=== PATIENT | male | born 1955 | race Caucasian/White ===

== ENCOUNTER → 2021-03-31 | Outpatient (CLI) | payer OTHER ==
[~2021-03-31] MED LIST: Cyclobenzaprine5 MG PO; HYDACE5 PO; LORA1 PO; RXHYDACE PO
[2021-03-31 09:31] LABS: BASOPHILS PERCENT AUTO 1 % (0-2); EOSINOPHILS ABSOLUTE AUTO 0.17 K/mm3 (0.00-0.68); EOSINOPHILS PERCENT AUTO 2 % (0-6); Hematocrit 47.4 % (37.0-53.0); Hemoglobin 16.2 g/dL (13.5-17.5); IMMATURE GRAN ABSOLUTE AUTO 0.07 K/mm3 (0.00-0.10); IMMATURE GRAN PERCENT AUTO 1 % (0-1); LYMPHOCYTES ABSOLUTE AUTO 1.67 K/mm3 (0.84-5.20); LYMPHOCYTES PERCENT AUTO 18 % (21-46); MONOCYTES ABSOLUTE AUTO 0.82 K/mm3 (0.16-1.47); MONOCYTES PERCENT AUTO 9 % (4-13); Mean Corpuscular HGB 33.7 pg (26.0-34.0); Mean Corpuscular HGB Conc 34.2 g/dL (31.5-36.5); Mean Corpuscular Volume 99 fL (80-100); Mean Platelet Volume 10.4 fL (9.1-12.4); NEUTROPHILS ABSOLUTE AUTO 6.39 K/mm3 (1.96-9.15); NEUTROPHILS PERCENT AUTO 69 % (41-73); Platelet Count 293 K/mm3 (150-400); RDW Coefficient Variation 12.4 % (11.7-14.2); RDW Standard Deviation 45.2 fL (35.1-46.3); Red Blood Cell Count 4.81 M/mm3 (4.30-5.90); White Blood Cell Count 9.22 K/mm3 (4.00-11.30)
[2021-03-31 09:49] LABS: Anion Gap 12 mmol/L (6-16); Blood Urea Nitrogen 13 mg/dL (8-24); Bun/Creatinine Ratio 16.9 (12.0-20.0); CO2, Blood 24 mmol/L (21-32); Chloride, Blood 106 mmol/L (98-108); Creatinine, Blood 0.77 mg/dL (0.60-1.20); Glomerular Filtration Rate >60 (60-); Glucose, Blood 99 mg/dL (70-99); Potassium, Blood 4.6 mmol/L (3.5-5.5); Sodium, Blood 142 mmol/L (136-145)
== END ==
LOC: LAB SHORT 09:26
PROVIDERS: Physician Assistant Medical
DX: R10.9 Unspecified abdominal pain (principal)
CPT/HCPCS: 80048; 85025

== ENCOUNTER 2021-11-13 07:45 | Emergency (ER) | payer OTHER ==
[~2021-11-13] VITALS: Ht 175.3 cm; Wt 83.9 kg
[~2021-11-13 07:45] MED LIST changes: +KETO10 PO
[2021-11-13 09:23] LABS: BASOPHILS ABSOLUTE AUTO 0.06 K/mm3 (0.00-0.23); BASOPHILS PERCENT AUTO 1 % (0-2); EOSINOPHILS ABSOLUTE AUTO 0.19 K/mm3 (0.00-0.68); EOSINOPHILS PERCENT AUTO 3 % (0-6); Hematocrit 45.3 % (37.0-53.0); Hemoglobin 15.6 g/dL (13.5-17.5); IMMATURE GRAN ABSOLUTE AUTO 0.03 K/mm3 (0.00-0.10); IMMATURE GRAN PERCENT AUTO 0 % (0-1); LYMPHOCYTES ABSOLUTE AUTO 1.71 K/mm3 (0.84-5.20); LYMPHOCYTES PERCENT AUTO 24 % (21-46); MONOCYTES ABSOLUTE AUTO 0.69 K/mm3 (0.16-1.47); MONOCYTES PERCENT AUTO 10 % (4-13); Mean Corpuscular HGB 34.2 pg (26.0-34.0); Mean Corpuscular HGB Conc 34.4 g/dL (31.5-36.5); Mean Corpuscular Volume 99 fL (80-100); Mean Platelet Volume 10.7 fL (9.1-12.4); NEUTROPHILS ABSOLUTE AUTO 4.32 K/mm3 (1.96-9.15); NEUTROPHILS PERCENT AUTO 62 % (41-73); Platelet Count 233 K/mm3 (150-400); RDW Coefficient Variation 12.3 % (11.7-14.2); RDW Standard Deviation 45.7 fL (35.1-46.3); Red Blood Cell Count 4.56 M/mm3 (4.30-5.90)
[2021-11-13 09:41] LABS: Albumin, Blood 3.5 g/dL (3.4-5.0); Albumin/Globulin Ratio 1.1 (0.8-1.8); Bilirubin, Total 0.5 mg/dL (0.1-1.0); Bun/Creatinine Ratio 23.7 (12.0-20.0); Creatinine, Blood 0.8 mg/dL (0.60-1.20); Globulin, Blood 3.2 g/dL (2.2-4.0); Potassium, Blood 4.2 mmol/L (3.5-5.5); Total Protein, Blood 6.7 g/dL (6.4-8.2)
== END 2021-11-13 11:29 | disposition home or self-care (01) ==
LOC: ER 07:45
PROVIDERS: Physician Assistant
DX: K42.9 Umbilical hernia without obstruction or gangrene (principal); Z87.891 Personal history of nicotine dependence; Z88.5 Allergy status to narcotic agent; Z79.899 Other long term (current) drug therapy
CPT/HCPCS: 76857; 80053; 85025; 96374; 99283-25; J3010

== ENCOUNTER 2023-04-27 19:14 | Inpatient (IN) | payer OTHER ==
[~2023-04-27] VITALS: Ht 177.8 cm; Wt 92.5 kg
[2023-04-27 20:59] LABS: BASOPHILS ABSOLUTE AUTO 0.06 K/mm3 (0.00-0.23); BASOPHILS PERCENT AUTO 0 % (0-2); EOSINOPHILS ABSOLUTE AUTO 0.02 K/mm3 (0.00-0.68); EOSINOPHILS PERCENT AUTO 0 % (0-6); Hematocrit 45.5 % (37.0-53.0); Hemoglobin 15.6 g/dL (13.5-17.5); IMMATURE GRAN ABSOLUTE AUTO 0.13 K/mm3 (0.00-0.10); IMMATURE GRAN PERCENT AUTO 1 % (0-1); LYMPHOCYTES PERCENT AUTO 5 % (21-46); MONOCYTES PERCENT AUTO 8 % (4-13); Mean Corpuscular HGB 33.8 pg (26.0-34.0); Mean Corpuscular HGB Conc 34.3 g/dL (31.5-36.5); Mean Corpuscular Volume 99 fL (80-100); Mean Platelet Volume 10.1 fL (9.1-12.4); NEUTROPHILS ABSOLUTE AUTO 19.28 K/mm3 (1.96-9.15); NEUTROPHILS PERCENT AUTO 86 % (41-73); Platelet Count 300 K/mm3 (150-400); RDW Coefficient Variation 12.1 % (11.7-14.2); RDW Standard Deviation 44.2 fL (35.1-46.3); Red Blood Cell Count 4.61 M/mm3 (4.30-5.90); White Blood Cell Count 22.49 K/mm3 (4.00-11.30)
[2023-04-27 21:23] LABS: Albumin, Blood 3.7 g/dL (3.4-5.0); Albumin/Globulin Ratio 0.9 (0.8-1.8); Bilirubin, Total 1.1 mg/dL (0.1-1.0); Bun/Creatinine Ratio 18.1 (12.0-20.0); Calcium, Blood 8.9 mg/dL (8.5-10.1); Creatinine, Blood 0.72 mg/dL (0.60-1.20); Globulin, Blood 3.9 g/dL (2.2-4.0); Potassium, Blood 3.9 mmol/L (3.5-5.5); Total Protein, Blood 7.6 g/dL (6.4-8.2)
[2023-04-28 00:01] LABS: Source, Urine Clean Catch
[2023-04-28 00:30] LABS: Bilirubin, Urine Neg (Neg); Blood, Urine 1+ (Neg); Glucose Qualitative, Urine Neg (Neg); Ketones, Urine Neg (Neg); Leukocyte Esterase, Urine Neg (Neg); Nitrite, Urine Neg (Neg); Protein, Urine 1+ (Neg); Urobilinogen, Urine NORM (Normal)
[2023-04-28 00:38] LABS: Appearance, Urine Clear (Clear); Color, Urine Pale Yellow (P-Yellow)
[2023-04-28 00:39] LABS: Bacteria Rare /hpf; Red Blood Cells, Urine 0-2 /hpf (0-2); Squamous Epithelial Cells Not Seen /hpf (Few); White Blood Cells, Urine 0-2 /hpf (0-5)
[2023-04-28 04:25] VITALS: BP 173/94
--- NOTE | 2023-04-28 04:42 | NUR ---
RECEIVED INTO CARE AT 0423 BY WHEELCHAIR, ABLE TO AMBULATE INDEP FROM WHEELCHAIR TO BED. TELE PACK ON IN SR. SEE ADMISSION ASSESSMENT FOR DETAILS.
--- NOTE | 2023-04-28 06:39 | NUR ---
REPORTED 1/10 PAIN, HAD FENTANYL PRIOR TO COMING TO PCU WHICH WAS EFFECTIVE. DR. ALLEN BY TO SPEAK WITH PATIENT REGARDING COURSE OF TREATMENT/HOSPITAL STAY. INDEP IN ROOM. ON TELE IN SR [id number]. NO VOICED CONCERNS BY PATIENT.
[2023-04-28 09:18] VITALS: BP 143/86
[2023-04-28 09:34] LABS: BASOPHILS ABSOLUTE AUTO 0.06 K/mm3 (0.00-0.23); BASOPHILS PERCENT AUTO 0 % (0-2); EOSINOPHILS ABSOLUTE AUTO 0.07 K/mm3 (0.00-0.68); EOSINOPHILS PERCENT AUTO 1 % (0-6); Hematocrit 41.2 % (37.0-53.0); IMMATURE GRAN ABSOLUTE AUTO 0.06 K/mm3 (0.00-0.10); IMMATURE GRAN PERCENT AUTO 0 % (0-1); LYMPHOCYTES ABSOLUTE AUTO 1.22 K/mm3 (0.84-5.20); LYMPHOCYTES PERCENT AUTO 8 % (21-46); MONOCYTES ABSOLUTE AUTO 1.28 K/mm3 (0.16-1.47); MONOCYTES PERCENT AUTO 9 % (4-13); Mean Corpuscular HGB 33.7 pg (26.0-34.0); Mean Corpuscular Volume 99 fL (80-100); NEUTROPHILS ABSOLUTE AUTO 12.17 K/mm3 (1.96-9.15); NEUTROPHILS PERCENT AUTO 82 % (41-73); Platelet Count 217 K/mm3 (150-400); RDW Standard Deviation 43.9 fL (35.1-46.3); Red Blood Cell Count 4.16 M/mm3 (4.30-5.90); White Blood Cell Count 14.86 K/mm3 (4.00-11.30)
[2023-04-28 09:56] LABS: Albumin/Globulin Ratio 0.8 (0.8-1.8); Bilirubin, Total 0.9 mg/dL (0.1-1.0); Bun/Creatinine Ratio 19.4 (12.0-20.0); Calcium, Blood 8.2 mg/dL (8.5-10.1); Creatinine, Blood 0.72 mg/dL (0.60-1.20); Globulin, Blood 3.6 g/dL (2.2-4.0); Potassium, Blood 3.7 mmol/L (3.5-5.5); Total Protein, Blood 6.6 g/dL (6.4-8.2)
[2023-04-28 11:49] VITALS: BP 150/104
[2023-04-28 16:19] VITALS: BP 143/83
--- NOTE | 2023-04-28 16:38 | NUR ---
NPO STATUS AND SLEEP AIDE: PATIENT REPORTED DIFFICULTY SLEEPING AT HOME. PATIENT REQUESTING SLEEP AIDE WHILE IN THE HOSPITAL. DISCUSED WITH DR. BRYAN AND VERIFIED THAT PO MEDICATIONS OKAY WITH NPO STATUS. NEW MEDICAITON ORDERS RECEIVED AND ENTERED.
--- NOTE | 2023-04-28 18:16 | NUR ---
SHIFT SUMMARY: GI: PATIENT CONTINUED TO REPORT TENDERNESS IN LLQ AND CRAMPING IN HIS UPPER ABDOMEN TODAY. PATIENT DENIED NAUSEA THROUGHOUT THE SHIFT. BOWEL SOUNDS PRESENT. PATIENT ABLE TO TOLERATE SHORT WALKS TO THE BATHROOM AND DOWN THE [place]. NEURO: PATIENT ALERT AND ORIENTED X4 THROUGHOUT THE SHIFT. DENIED NUMBNESS/TINGLING. PATIENT WEARS GLASSES AT BASELINE. RESPIRATORY: PATIENT STABLE ON ROOM AIR. SPO2 >94%. DENIED SHORTNESS OF BREATH OR DIFFICULTY BREATHING. PATIENT REPORTS A "MILD ALLERGY" THAT HAS BEEN PRESENT FOR ABOUT A WEEK. PATIENT REPORTS SENSITIVITIES THROUGHOUT HIS LIFE. CARDIAC: PATIENT HR IN THE 70S-80S. PATIENT IN SINUS RHYTHM THROUGHOUT SHIFT WITH OCCASIONAL PVCS. PATIENT DENIES CHEST PAIN OR DISCOMFORT. BLOOD PRESSURES STABLE. MAPS >65. : PATIENT VOIDING WITHOUT DIFFICULTY. DENIES BURNING OR DISCOMFORT WITH VOIDING. PSYCHSOCIAL: PATIENT HAS A SIGNIFICANT OTHER THAT IS SUPPORTIVE OF THE PATIENT. PATIENT IS CALM AND COOPERATIVE WITH HIS CARE. PATIENT RECEPTIVE TO EDUCATION AND CHANGES HE CAN MAKE TO AVOID FUTURE DIVERTICULITIS.
[2023-04-28 20:48] VITALS: BP 167/104
[2023-04-29 03:26] VITALS: BP 139/101
[2023-04-29 04:20] LABS: BASOPHILS ABSOLUTE AUTO 0.06 K/mm3 (0.00-0.23); BASOPHILS PERCENT AUTO 1 % (0-2); EOSINOPHILS ABSOLUTE AUTO 0.14 K/mm3 (0.00-0.68); EOSINOPHILS PERCENT AUTO 1 % (0-6); Hematocrit 41.4 % (37.0-53.0); IMMATURE GRAN ABSOLUTE AUTO 0.05 K/mm3 (0.00-0.10); IMMATURE GRAN PERCENT AUTO 1 % (0-1); LYMPHOCYTES ABSOLUTE AUTO 1.23 K/mm3 (0.84-5.20); LYMPHOCYTES PERCENT AUTO 12 % (21-46); MONOCYTES PERCENT AUTO 10 % (4-13); Mean Corpuscular HGB Conc 33.8 g/dL (31.5-36.5); Mean Corpuscular Volume 101 fL (80-100); Mean Platelet Volume 11.6 fL (9.1-12.4); NEUTROPHILS ABSOLUTE AUTO 7.56 K/mm3 (1.96-9.15); NEUTROPHILS PERCENT AUTO 75 % (41-73); Platelet Count 209 K/mm3 (150-400); RDW Standard Deviation 45.1 fL (35.1-46.3); Red Blood Cell Count 4.12 M/mm3 (4.30-5.90); White Blood Cell Count 10.04 K/mm3 (4.00-11.30)
[2023-04-29 04:37] LABS: Bun/Creatinine Ratio 15.4 (12.0-20.0); Calcium, Blood 8.1 mg/dL (8.5-10.1); Creatinine, Blood 0.78 mg/dL (0.60-1.20); Potassium, Blood 3.7 mmol/L (3.5-5.5)
--- NOTE | 2023-04-29 04:40 | NUR ---
SHIFT SUMMARY NO ACUTE CHANGES OVERNIGHT. THIS RN DID NOT NEED TO MEDICATE PATIENT FOR PAIN. PATIENT STATES THAT AT REST LLQ PAIN IS NOT THERE, ONLY WHEN AMBULATING. SR BBB WITH HR 70'S. BP STABLE WITH MAP >65. ON RA WITH SPO2 >92%. AFEBRILE. BS+. PPP. ABLE TO AMBULATE TO BATHROOM INDEPENDENTLY. A&O X4. ABLE TO MAKE NEEDS KNOWN. BED IN LOWEST POSITION AND CALL LIGHT WTHIIN REACH. THIS RN WILL REPORT TO ONCOMING DAYSHIFT RN.
[2023-04-29 09:00] VITALS: BP 158/109
--- NOTE | 2023-04-29 18:35 | NUR ---
SHIFT SUMMARY: "DAMARIS" IS A&OX4. VSS, NO ACUTE EVENTS SINCE PT WAS TRANSFERRED TO MEDICAL FLOOR. PT IS INDEPENDENT IN THE ROOM AND HALLWAYS. HE IS TOLERATING CLEAR LIQUIDS WITHOUT DIFFICULTY. HE HAS NOT COMPLAINED OF PAIN SINCE TRANSFERRING. IV TO RIGHT AC PATENT. HE IS SITTING UP IN BED WITH THE CALL LIGHT IN REACH. WILL GIVE REPORT TO ONCOMING SHIFT.
--- NOTE | 2023-04-29 18:53 | NUR ---
SHIFT SUMMARY PT ALERT AND ORIENTED X 4, COOPERATIVE WITH CARE AND ABLE TO MAKE NEEDS KNOWN. URBAN. PT ON RA AND MAINTAINED 02 SATURATION ABOVE 92%, HE DENIED SOB. ALL VITALS STABLE THROUGHOUT SHIFT, PT DENIED CHEST PAIN/PRESSURE. PT CONTINENT AND INDEPENDENT IN ROOM. PT STARTED OFF DAY NPO AND ADVANCED TO CLEAR LIQUIDS AND TOLERATED WELL. PT WALKED AROUND THE UNIT SEVERAL TIMES TODAY. HE SAID THAT HE FELT MUCH BETTER TODAY AND BARELY FELT ANY ABDOMINAL PAIN. PT WAS IN GOOD SPIRITS ALL SHIFT. HE TRANSFERRED TO MEDICAL FLOOR AROUND 1640 AND TRANSFERRED WITH ALL OF HIS BELONGINGS. CHART AND REPORT GIVEN TO MEDICAL FLOOR NURSE. PT WAS STABLE AT TIME OF TRANSFER.
[2023-04-29 20:21] VITALS: BP 150/86
--- NOTE | 2023-04-30 04:45 | NUR ---
SHIFT SUMMARY ADMITTED DIVERTICULITIS W/PERFORATION. FULL CODE. IV ANTIB RX ARE SCHEDULED. CLEAR LIQUID DIET. TELEMETRY: NSR @ 87 BPM. A&O X4. ON RA. INDEPENDENT - BRP. NO NEW CONCERNS THIS SHIFT
[2023-04-30 06:01] VITALS: BP 142/105
[2023-04-30 06:41] LABS: BASOPHILS ABSOLUTE AUTO 0.06 K/mm3 (0.00-0.23); BASOPHILS PERCENT AUTO 1 % (0-2); EOSINOPHILS PERCENT AUTO 2 % (0-6); Hematocrit 42.5 % (37.0-53.0); Hemoglobin 14.6 g/dL (13.5-17.5); IMMATURE GRAN ABSOLUTE AUTO 0.08 K/mm3 (0.00-0.10); IMMATURE GRAN PERCENT AUTO 1 % (0-1); LYMPHOCYTES ABSOLUTE AUTO 1.38 K/mm3 (0.84-5.20); LYMPHOCYTES PERCENT AUTO 13 % (21-46); MONOCYTES ABSOLUTE AUTO 0.96 K/mm3 (0.16-1.47); MONOCYTES PERCENT AUTO 9 % (4-13); Mean Corpuscular HGB 33.6 pg (26.0-34.0); Mean Corpuscular HGB Conc 34.4 g/dL (31.5-36.5); Mean Corpuscular Volume 98 fL (80-100); Mean Platelet Volume 11.5 fL (9.1-12.4); NEUTROPHILS ABSOLUTE AUTO 7.72 K/mm3 (1.96-9.15); NEUTROPHILS PERCENT AUTO 74 % (41-73); Platelet Count 240 K/mm3 (150-400); RDW Coefficient Variation 11.9 % (11.7-14.2); RDW Standard Deviation 43.7 fL (35.1-46.3); Red Blood Cell Count 4.34 M/mm3 (4.30-5.90)
[2023-04-30 07:02] LABS: Bun/Creatinine Ratio 13.8 (12.0-20.0); Calcium, Blood 8.7 mg/dL (8.5-10.1); Creatinine, Blood 0.8 mg/dL (0.60-1.20); Potassium, Blood 3.7 mmol/L (3.5-5.5)
[2023-04-30 07:34] VITALS: BP 143/81
[2023-04-30] MEDS ORDERED: TRAZ50 PO (12:35)
[2023-04-30] MEDS ORDERED: ACET325 PO (12:35)
[2023-04-30] MEDS ORDERED: MIRALAX17 GM PO (12:36)
[2023-04-30] MEDS ORDERED: AMOCLA875 PO (12:36)
[2023-04-30] MEDS ORDERED: VISBIOME 112.51 EACH PO (12:36)
--- NOTE | 2023-04-30 14:15 | NUR ---
PT DISCHARGED WITH DC INSTRUCTIONS. PT ABLE TO TOLERATING CLEARS. ABD REMAINED MODERATELY DISTENDED, PT STATES NORMAL BUT MILDLY TAUGHT. PT AMBULTATS INDEPENDANTLY IN THE HALLS. A/O X4, STATES HE UNDERSTANDS LOW FIBER DIET HE IS ORDERED TO BE ON WHILE PERF HEALING. RN ESCORTED PT AMBULATED TO PRIVATE CAR FOR DC HOME. DECLINED W/CC
== END 2023-04-30 12:54 | disposition home or self-care (01) | DRG 392 ==
LOC: ER 19:14 → PCU 04-28 03:27 → MEDS 04-29 16:40 → ENPENDDIS 04-30 11:38 → MEDS 04-30 12:54
PROVIDERS: Emergency Medicine; Physician Assistant; Student in an Organized Health Care Education/Training Program; ADMIT Internal Medicine
DX: K57.20 Diverticulitis of large intestine with perforation and abscess without bleeding (principal); K56.7 Ileus, unspecified; G89.29 Other chronic pain; R73.9 Hyperglycemia, unspecified; K42.9 Umbilical hernia without obstruction or gangrene; I71.40 Abdominal aortic aneurysm, without rupture, unspecified; M54.50 Low back pain, unspecified; E86.0 Dehydration; Z88.5 Allergy status to narcotic agent; Z98.890 Other specified postprocedural states; Z79.899 Other long term (current) drug therapy; Z87.891 Personal history of nicotine dependence
CPT/HCPCS: 36415; 74019; 74177; 80048; 80053; 81001; 82947; 83605; 85025; 94760; 96365; 96375; 99285-25; A9270; J0295; J0696; J1885; J2405; J2543; J3010; J7030; J7050; Q9967

== ENCOUNTER → 2023-05-11 | Outpatient (CLI) | payer OTHER ==
[~2023-05-11] MED LIST changes: +ACET325 PO; +AMOCLA875 PO; +MIRALAX17 GM PO; +TRAZ50 PO; +VISBIOME 112.51 EACH PO
[2023-05-11 11:22] LABS: BASOPHILS ABSOLUTE AUTO 0.03 K/mm3 (0.00-0.23); BASOPHILS PERCENT AUTO 0 % (0-2); EOSINOPHILS PERCENT AUTO 2 % (0-6); Hematocrit 47.2 % (37.0-53.0); IMMATURE GRAN ABSOLUTE AUTO 0.12 K/mm3 (0.00-0.10); IMMATURE GRAN PERCENT AUTO 1 % (0-1); LYMPHOCYTES ABSOLUTE AUTO 1.52 K/mm3 (0.84-5.20); LYMPHOCYTES PERCENT AUTO 12 % (21-46); MONOCYTES ABSOLUTE AUTO 1.13 K/mm3 (0.16-1.47); MONOCYTES PERCENT AUTO 9 % (4-13); Mean Corpuscular HGB 33.2 pg (26.0-34.0); Mean Corpuscular HGB Conc 33.9 g/dL (31.5-36.5); Mean Corpuscular Volume 98 fL (80-100); Mean Platelet Volume 10.7 fL (9.1-12.4); NEUTROPHILS ABSOLUTE AUTO 10.13 K/mm3 (1.96-9.15); NEUTROPHILS PERCENT AUTO 77 % (41-73); Platelet Count 351 K/mm3 (150-400); RDW Coefficient Variation 11.9 % (11.7-14.2); RDW Standard Deviation 43.1 fL (35.1-46.3); Red Blood Cell Count 4.82 M/mm3 (4.30-5.90); White Blood Cell Count 13.23 K/mm3 (4.00-11.30)
[2023-05-11 11:31] LABS: Albumin, Blood 3.3 g/dL (3.4-5.0); Albumin/Globulin Ratio 0.9 (0.8-1.8); Bilirubin, Total 0.2 mg/dL (0.1-1.0); Bun/Creatinine Ratio 17.4 (12.0-20.0); Calcium, Blood 9.1 mg/dL (8.5-10.1); Creatinine, Blood 0.92 mg/dL (0.60-1.20); Globulin, Blood 3.6 g/dL (2.2-4.0); Potassium, Blood 3.8 mmol/L (3.5-5.5); Total Protein, Blood 6.9 g/dL (6.4-8.2)
== END | disposition home or self-care (01) ==
LOC: LAB 11:14 → LAB SHORT 11:14
PROVIDERS: Chiropractor
DX: R07.9 Chest pain, unspecified (principal)
CPT/HCPCS: 80053; 83690; 84484; 85025; 85379

== ENCOUNTER → 2025-02-13 | Outpatient (CLI) | payer OTHER | LOC: LAB SHORT 12:45 → LAB 12:45 | DX: N39.0 Urinary tract infection, site not specified (principal) | CPT/HCPCS: 87086 ==